=== PATIENT | male | born 1990 | race Two or more races ===

== ENCOUNTER 2023-08-22 16:14 | Emergency (ER) | payer MEDICAID ==
[~2023-08-22] VITALS: Ht 182.9 cm; Wt 74.8 kg
[2023-08-22 16:37] VITALS: BP 133/85; TEMP 98.7; O2SAT 99
== END 2023-08-22 17:14 | disposition home or self-care (01) ==
LOC: ER 16:38
DX: K13.70 Unspecified lesions of oral mucosa (principal); Z98.890 Other specified postprocedural states; Z60.2 Problems related to living alone